=== PATIENT | male | born 1990 | race African-American/Black ===

== ENCOUNTER 2019-07-02 14:06 | Emergency (ER) | payer OTHER ==
[~2019-07-02] VITALS: Ht 157.5 cm; Wt 90.0 kg
[2019-07-02 14:10] VITALS: BP 107/58; PULSE 71; RESP 18; Ht 157.5 cm; Wt 90.0 kg
== END 2019-07-02 14:15 | disposition home or self-care (01) ==
LOC: E/R 14:06
DX: S69.91XA Unspecified injury of right wrist, hand and finger(s), initial encounter (principal); X58.XXXA Exposure to other specified factors, initial encounter; Y92.9 Unspecified place or not applicable
CPT/HCPCS: 99282